=== PATIENT | female | born 1990 | race Two or more races ===

== ENCOUNTER 2024-04-01 18:02 | Emergency (ER) | payer MEDICAID ==
[~2024-04-01] VITALS: Ht 162.6 cm; Wt 84.0 kg
[2024-04-01 18:11] VITALS: TEMP 98.3
[2024-04-01] MEDS ORDERED: LEVO100 PO (18:14)
[2024-04-01] MEDS ORDERED: PRED-549 PO (18:14)
[2024-04-01] MEDS ORDERED: LOSA-382 PO (18:14)
[2024-04-01] MEDS ORDERED: CALC500T37 PO (18:14)
[2024-04-01] MEDS ORDERED: CHOL200059 PO (18:14)
[2024-04-01 18:35] LABS: BASOPHILS % (AUTO) 0.4 % (0.0-2.0); EOSINOPHILS % (AUTO) 0.9 % (1.0-6.0); HEMOGLOBIN 13.1 g/dL (12.0-16.0); LYMPHOCYTES # (AUTO) 2.9 K/uL (1.0-4.8); LYMPHOCYTES % (AUTO) 27.3 % (22.0-44.0); MEAN CORPUSCULAR HEMOGLOBIN 30.6 pg (26.0-34.0); MEAN CORPUSCULAR HGB CONC 32.9 G/dL (31.0-37.0); MEAN CORPUSCULAR VOLUME 93 fL (80-100); MONOCYTES # (AUTO) 0.9 K/uL (0.1-1.0); NEUTROPHILS # (AUTO) 6.5 K/uL (1.8-7.7); NEUTROPHILS % (AUTO) 62.4 % (40.0-70.0); PLATELET COUNT (AUTO) 331 K/uL (150-450); RED CELL DISTRIBUTION WIDTH 13.6 % (11.5-14.5); WHITE BLOOD COUNT (AUTO) 10.5 K/uL (4.5-11.0)
[2024-04-01 18:41] LABS: ANION GAP 7 mmol/L (8-16); CALCIUM, TOTAL 9.2 mg/dL (8.8-10.5); CARBON DIOXIDE 26 mmol/L (22-29); CHLORIDE 104 mmol/L (98-107); CREATININE 0.65 mg/dL (0.60-1.30); GLOMERULAR FILTR. RATE CALC > 60 mL/min (>60); GLUCOSE,RANDOM 103 mg/dL (70-110); POTASSIUM 4.1 mmol/L (3.5-5.1); SODIUM SERUM 137 mmol/L (136-145); UREA NITROGEN, BLOOD 18 mg/dL (7-18)
[2024-04-01 18:52] LABS: ALANINE AMINOTRANSFERASE 100 U/L (12-78); ALBUMIN 3.2 g/dL (3.4-5.0); ALKALINE PHOSPHATASE 70 U/L (46-116); ASPARTATE AMINOTRANSFERASE 39 U/L (15-37); BILIRUBIN,TOTAL 0.5 mg/dL (0.1-1.0); HCG,QUANTITATIVE < 1 mIU/mL (0-6); LIPASE 52 U/L (16-77); TOTAL PROTEIN, SERUM 6.9 g/dL (6.4-8.2)
[2024-04-01 19:39] LABS: APPEARANCE,URINE CLEAR (CLEAR); BILIRUBIN,URINE NEGATIVE (NEGATIVE); COLOR,URINE LIGHT YELLOW (YELLOW); GLUCOSE, URINE (UA) NEGATIVE (NEGATIVE); KETONES,URINE NEGATIVE (NEGATIVE); LEUKOCYTE ESTERASE ,URINE NEGATIVE (NEGATIVE); NITRATE,URINE NEGATIVE (NEGATIVE); OCCULT BLOOD,URINE NEGATIVE (NEGATIVE); PH,URINE 5.5 (5.0-8.0); PROTEIN,URINE NEGATIVE (NEGATIVE); SPECIFIC GRAVITIY, URINE 1.018 (1.003-1.030); UROBILINOGEN,URINE <=1.0 mg/dL (<=1.0)
[2024-04-01] MEDS: SODIUM CHLORIDE 0.9% 1,000 ML IV ONE (20:39)
[2024-04-01] MEDS: ONDANSETRON HCL 4 MG/2 ML VIAL IVP ONE (20:40)
[2024-04-01] MEDS ORDERED: SODIUM CHLORIDE 0.9% 100 ML ONE (20:52)
[2024-04-01] MEDS ORDERED: IOHEXOL 350 MG/ML 100 ML VIAL ONE (20:52)
[2024-04-01 22:53] VITALS: BP 102/64; PULSE 82; RESP 18
[2024-04-01] MEDS ORDERED: HYDR-4062 PO (23:13)
[2024-04-01] MEDS ORDERED: IBUP-1492 PO (23:13)
[2024-04-01] MEDS ORDERED: ONDA-104 PO (23:13)
[2024-04-01] MEDS ORDERED: POLY119P3 PO (23:13)
== END 2024-04-01 23:37 | disposition home or self-care (01) ==
LOC: EMS 18:06
DX: N83.202 Unspecified ovarian cyst, left side (principal); I10 Essential (primary) hypertension
CPT/HCPCS: 99285; 74177; 96374; 96361; 80053; 81003; 83690; 84702; 85025; 36415; J2405; Q9967; J7030; J7050